=== PATIENT | male | born 1995 | race Caucasian/White ===

== ENCOUNTER → 2017-12-14 | Outpatient (CLI) | payer BC, MEDICARE ==
[~2017-12-14] MED LIST: MIRALAX 17GM PK1 PKT PO; SYNTHROID0.075 MG/T PO; ZOFRAN 4MG T4 MG/TAB PO
== END ==
LOC: COL.RAD 09:36
DX: K82.8 Other specified diseases of gallbladder (principal)

== ENCOUNTER 2017-12-27 05:25 | Day surgery (SDC) | payer BC, MEDICARE ==
[~2017-12-27] VITALS: Ht 158.8 cm; Wt 58.0 kg
[2017-12-27 05:59] VITALS: BP 112/81; PULSE 62; TEMP 98.5
[2017-12-27] MEDS ORDERED: SYNTHROID0.125 MG/T PO (06:09)
[2017-12-27] MEDS ORDERED: VITAMIN D32000 IU PO (06:10)
[2017-12-27] MEDS ORDERED: MULTIPLE VITAMI1 TA5 PO (06:12)
[2017-12-27] MEDS ORDERED: MIRALAX238G PO (06:15)
[2017-12-27 08:10] VITALS: BP 106/29; PULSE 63; TEMP 98.5
[2017-12-27 08:25] VITALS: BP 123/72; PULSE 68
[2017-12-27 09:34] VITALS: BP 115/71; PULSE 73; TEMP 98.3
== END 2017-12-27 09:10 | disposition home or self-care (01) ==
LOC: SDCO 05:25
DX: N35.9 Urethral stricture, unspecified (principal); R31.0 Gross hematuria; E03.9 Hypothyroidism, unspecified; Q90.9 Down syndrome, unspecified; K21.9 Gastro-esophageal reflux disease without esophagitis; Z91.041 Radiographic dye allergy status; Z80.0 Family history of malignant neoplasm of digestive organs; Z83.3 Family history of diabetes mellitus; Z82.49 Family history of ischemic heart disease and other diseases of the circulatory system
CPT/HCPCS: J0690; J1100; J2405; J2704; J3010